=== PATIENT | male | born 1975 | race Caucasian/White ===

== ENCOUNTER → 2021-01-05 | Outpatient (REF) ==
--- NOTE | 2021-01-05 15:07 | Diagnostic Imaging Report ---
INDICATION: Knee pain status post fall. COMPARISON: None. FINDINGS: Multiple radiographic views of the left knee joint demonstrate no acute fracture or dislocation. No focal osseous lesions are seen. No significant joint effusion is seen. The surrounding soft tissue structures are unremarkable. There are no radiopaque foreign bodies. IMPRESSION: No acute fractures or dislocations of the left knee joint. Dictated by: Dictated on workstation # [id number]
== END ==
LOC: OCC 14:10
PROVIDERS: ATTEND Nurse Practitioner Family
DX: M25.562 Pain in left knee (principal); Z91.81 History of falling
CPT/HCPCS: 73564